=== PATIENT | female | born 1960 | race American Indian/Alaskan Native ===

== ENCOUNTER 2020-02-24 20:55 | Observation (INO) | payer OTHER ==
[2020-02-24] MEDS ORDERED: INSULIN REGULAR, HUMAN 100 UNIT/ML 3ML VIAL IV ONE (22:53)
[2020-02-24] MEDS ORDERED: SODIUM CHLORIDE 0.9% 1000 ML 1,000 ML IV ONE (22:53)
--- NOTE | 2020-02-24 22:58 | Emergency Department Report ---
ED General Adult HPI - General Stated complaint: HIGH BS Time Seen by Provider: 02/24/20 22:43 Source: patient, old records reviewed (No previous medical record for review) Mode of arrival: Stretcher Limitations: Altered Mental Status (mild) - History of Present Illness Initial comments: 59-year-old female with no known past medical history presents to the hospital with 1 week of increased thirst and increased urinary frequency x1 week. Patient does not have any known medical problems but she also does not have a primary care doctor and has not seen a physician in quite some time. Patient also complains of nausea without vomiting, no pain reported, fever, or dysuria. Initial glucose was 364 with EMS and while waiting for a bed assignment in the ED increased to 476. EMS provided 1200 mL of normal saline. Patient is pleasant and follows commands. She does exhibit some mild confusion. She is able to tell me that she is in the hospital but does not know which one, she knows the president is Lazaro Nagy, however, she is unable to tell me the current year, month, states her age is 58, and unable to tell me her year. Patient denies smoking or drinking alcohol - Related Data Allergies Allergy/AdvReac Type Severity Reaction Status Date / Time Penicillins Allergy Swelling Verified 02/25/20 01:36 EDT ED Review of Systems ROS: Stated complaint: HIGH BS Other details as noted in HPI Comment: All other systems reviewed and negative ED Physical Exam - Other Other exam information: General: No acute distress Head: Atraumatic Eyes: normal appearance ENT: dry mucous membranes Neck: Normal appearance, no midline tenderness Chest: Clear to auscultation bilaterally CV: Regular rate and rhythm Abdomen: Soft, normal bowel sounds, nontender, nondistended, no rebound or guarding Back: Normal inspection Extremity: Normal inspection, full range of motion Neuro: Alert O x 2, no facial asymmetry, speech clear, no gross motor sensory deficit Psych: Appropriate behavior Skin: No rash ED Course Vital Signs 02/24/20 23:20 Temperature 98.7 F Pulse Rate 105 H Respiratory 16 Rate Blood Pressure 169/87 [Left] O2 Sat by Pulse 95 Oximetry - Reevaluation(s) Reevaluation #1: 02/25/20 01:16 EDT Glucose is trending downward with insulin and IV fluids. Patient is still exhibiting some confusion. She repeated in the bed instead of the bedpan. She pulled out her IV and all her monitor leads. Patient is now not able to accurately tell me her date and year of . She still was unable to tell me the year or the month. I attempted to call the phone number on the chart for collateral information but the number on the chart is disconnected and I do not have a current contact for her family members. 02/25/20 01:23 EDT Troponin added to labs given mild ekg abnl. patient does not complain of chest pain 02/25/20 01:36 EDT Patient provided number [phone] as her [employer]'s number. This number was called and went straight to voicemail with a female's voice and is unlikely her is true number. ED Medical Decision Making - Lab Data Result diagrams: 02/24/20 23:00 02/24/20 23:00 Lab Results 02/24/20 02/24/20 02/24/20 Range/Units 23:00 23:00 23:00 WBC 9.1 (4.5-11.0) K/mm3 RBC 5.34 H (3.65-5.03) M/mm3 Hgb 16.5 H (10.1-14.3) gm/dl Hct 48.7 H (30.3-42.9) % MCV 91 (79-97) fl MCH 31 (28-32) pg MCHC 34 (30-34) % RDW 12.7 L (13.2-15.2) % Plt Count 542 H (140-440) K/mm3 Lymph % (Auto) 16.4 (13.4-35.0) % [place] % (Auto) 7.8 H (0.0-7.3) % Eos % (Auto) 0.1 (0.0-4.3) % Baso % (Auto) 0.9 (0.0-1.8) % Lymph # (Auto) 1.5 (1.2-5.4) K/mm3 [place] # (Auto) 0.7 (0.0-0.8) K/mm3 Eos # (Auto) 0.0 (0.0-0.4) K/mm3 Baso # (Auto) 0.1 (0.0-0.1) K/mm3 Seg Neutrophils % 74.8 H (40.0-70.0) % Seg Neutrophils # 6.8 (1.8-7.7) K/mm3 VBG pH 7.397 (7.320-7.420) Sodium 137 (137-145) mmol/L Potassium 3.9 (3.6-5.0) mmol/L Chloride 92.4 L (98-107) mmol/L Carbon Dioxide 26 (22-30) mmol/L Anion Gap 23 mmol/L BUN 26 H (7-17) mg/dL Creatinine 0.9 (0.6-1.2) mg/dL Estimated GFR > 60 ml/min BUN/Creatinine Ratio 29 % Glucose 418 H (65-100) mg/dL POC Glucose (70-105) mg/dL Calcium 8.8 (8.4-10.2) mg/dL Magnesium 2.80 H (1.7-2.3) mg/dL Total Bilirubin 0.70 (0.1-1.2) mg/dL AST 21 (5-40) units/L ALT 29 (7-56) units/L Alkaline Phosphatase 94 (35-129) units/L Total Protein 6.9 (6.3-8.2) g/dL Albumin 3.6 L (3.9-5) g/dL Albumin/Globulin Ratio 1.1 % 02/24/20 02/25/20 Range/Units 23:36 01:25 EST WBC (4.5-11.0) K/mm3 RBC (3.65-5.03) M/mm3 Hgb (10.1-14.3) gm/dl Hct (30.3-42.9) % MCV (79-97) fl MCH (28-32) pg MCHC (30-34) % RDW (13.2-15.2) % Plt Count (140-440) K/mm3 Lymph % (Auto) (13.4-35.0) % [place] % (Auto) (0.0-7.3) % Eos % (Auto) (0.0-4.3) % Baso % (Auto) (0.0-1.8) % Lymph # (Auto) (1.2-5.4) K/mm3 [place] # (Auto) (0.0-0.8) K/mm3 Eos # (Auto) (0.0-0.4) K/mm3 Baso # (Auto) (0.0-0.1) K/mm3 Seg Neutrophils % (40.0-70.0) % Seg Neutrophils # (1.8-7.7) K/mm3 VBG pH (7.320-7.420) Sodium (137-145) mmol/L Potassium (3.6-5.0) mmol/L Chloride (98-107) mmol/L Carbon Dioxide (22-30) mmol/L Anion Gap mmol/L BUN (7-17) mg/dL Creatinine (0.6-1.2) mg/dL Estimated GFR ml/min BUN/Creatinine Ratio % Glucose (65-100) mg/dL POC Glucose 351 H 290 H (70-105) mg/dL Calcium (8.4-10.2) mg/dL Magnesium (1.7-2.3) mg/dL Total Bilirubin (0.1-1.2) mg/dL AST (5-40) units/L ALT (7-56) units/L Alkaline Phosphatase (35-129) units/L Total Protein (6.3-8.2) g/dL Albumin (3.9-5) g/dL Albumin/Globulin Ratio % - EKG Data -: EKG Interpreted by In EKG shows normal: sinus rhythm, ST-T waves (Inferior lateral T wave inversion) Rate: normal - EKG Data 02/24/20 22:58 EMS EKG sinus rate 92 with inferior lateral T wave inversions however, artifact - Radiology Data Radiology results: report reviewed CT head without contrast INDICATION : Altered mental status. TECHNIQUE: Axial imaging performed from the skull apex through the skull base without the use of contrast. All CT examinations performed at this facility utilize dose modulation, iterative reconstruction or weight-based dosing, when appropriate, to reduce radiation dose to as low as reasonably achievable. COMPARISON: None FINDINGS: No acute intracranial hemorrhage or parenchymal abnormality. Ventricles are normal in size and appear symmetric. Soft tissues including the orbits appear normal. No acute osseous abnormality. Sinuses and mastoid air cells are clear. IMPRESSION: No acute abnormality. - Medical Decision Making Patient presents to the hospital alteration in mental status/mild confusion and new onset diabetes with hyperglycemia without signs of DKA. No focal deficits noted on examination other than cognitive deficits. CT head without acute abnormalities. Urine collection is pending to out infection however, patient does not have fever or leukocytosis. She initially urinated in the bed instead of the bedpan. hospitalist informed of admission Critical Care Time: No Critical care attestation.: If time is entered above; I have spent that time in minutes in the direct care of this critically ill patient, excluding procedure time. ED Disposition Clinical Impression: Diabetes mellitus, new onset, Hyperglycemia, Confusion, Mental status alteration, Dehydration Disposition: OP ADMIT IP TO THIS HOSP Is pt being admited?: Yes Condition: Stable Time of Disposition: 01:29 (Dr Hernandez/hospitalist) - Assessment Assessment Interval: Baseline - Level of Consciousness 1a. Level of Consciousness: alert/keenly responsive - LOC Questions 1b. LOC Questions: answers 1 question correctly - LOC Command 1c. LOC Commands: performs tasks correctly - Best Gaze 2. Best Gaze: normal - Visual 3. Visual: no visual loss - Facial Palsy 4. Facial Palsy: normal symmetrical movement - Motor Arm 5a. Motor Arm Left: no drift 5b. Motor Arm Right: no drift - Motor Leg 6a. Motor Leg Left: no drift 6b. Motor Leg Right: no drift - Limb Ataxia 7. Limb Ataxia: absent - Sensory 8. Sensory: normal - Best Language 9. Best Language: no aphasia - Dysarthria 10. Dysarthria: normal - Extinction and Inattention 11. Extinction/Inattention: no abnormality (Patient does have a delay when trying to name objects. Example she is able to name a pen but is delayed in naming a glove) - Scoring Total Score: 1 Stroke Severity: Minor Stroke
[2020-02-24 23:14] LABS: Basophils # (Auto) 0.1 K/mm3 (0.0-0.1); Basophils % (Auto) 0.9 % (0.0-1.8); Eosinophils % (Auto) 0.1 % (0.0-4.3); Hematocrit 48.7 % (30.3-42.9); Hemoglobin 16.5 gm/dl (10.1-14.3); Lymphocytes # (Auto) 1.5 K/mm3 (1.2-5.4); Lymphocytes % (Auto) 16.4 % (13.4-35.0); Mean Corpuscular HGB Conc 34 % (30-34); Mean Corpuscular Volume 91 fl (79-97); Monocytes # (Auto) 0.7 K/mm3 (0.0-0.8); Monocytes % (Auto) 7.8 % (0.0-7.3); Platelet Count 542 K/mm3 (140-440); Red Blood Count 5.34 M/mm3 (3.65-5.03); Red Cell Distribution Width 12.7 % (13.2-15.2)
[2020-02-24] MEDS ORDERED: INSULIN REGULAR, HUMAN 100 UNITS/1 ML ONE (23:20)
[2020-02-24 23:28] LABS: Alanine Aminotransferase 29 units/L (7-56); Albumin 3.6 g/dL (3.9-5); BUN/Creatinine Ratio 29; Blood Urea Nitrogen 26 mg/dL (7-17); Calcium 8.8 mg/dL (8.4-10.2); Hemolysis Index 12
--- NOTE | 2020-02-24 23:41 | Cat Scan Report ---
CT head without contrast INDICATION : Altered mental status. TECHNIQUE: Axial imaging performed from the skull apex through the skull base without the use of con trast. All CT examinations performed at this facility utilize dose modulation, iterative reconstruct ion or weight-based dosing, when appropriate, to reduce radiation dose to as low as reasonably achiev able. COMPARISON: None FINDINGS: No acute intracranial hemorrhage or parenchymal abnormality. Ventricles are normal in si ze and appear symmetric. Soft tissues including the orbits appear normal. No acute osseous abnorm ality. Sinuses and mastoid air cells are clear. IMPRESSION: No acute abnormality. Signer Name: Carlos Dela Cruz MD Signed: 02/24/2020 11:36 PM Workstation Name: [id number]
[2020-02-25] MEDS ORDERED: SODIUM CHLORIDE 0.9% 1000 ML 1,000 ML IV ONE (00:04)
--- NOTE | 2020-02-25 01:05 | History and Physical Report ---
<LOISJYOTI O - Last Filed: 02/25/20 05:23> History of Present Illness Date of examination: 02/25/20 Date of admission: 02/25/2020 Chief complaint: Increased Thirst Increased Urination History of present illness: Old female with no significant past medical history presented to the emergency room today with complaints of increased urinary frequency and increased thirst which has been ongoing for about a week. She has also been having some nausea and vomiting but denies any abdominal pain and no diarrhea. Patient denies any chest pain or shortness of breath. Denies any fever or chills, denies any sick contacts and no recent travel, denies any contact with anyone with COVID-19. Upon arrival in the emergency room she appeared mildly confused. Work-up in the emergency room today reveals elevated blood glucose of 476. Patient was started on IV fluid and also given some insulin. Blood glucose later improved to the 290s. She has not been able to give a urine sample for urinalysis. Patient being admitted for new onset diabetes mellitus and changes in mental status. Past History Past Medical History: No medical history Past Surgical History: No surgical history Social history: no significant social history Family history: no significant family history Medications and Allergies Allergies Allergy/AdvReac Type Severity Reaction Status Date / Time Penicillins Allergy Swelling Verified 02/25/20 01:36 EDT Active Meds: Active Medications Acetaminophen (Tylenol) 650 mg PO Q4H PRN PRN Reason: Pain MILD(1-3)/Fever >100.5/VALENTINE Dextrose (D50w (25gm) Syringe) 50 ml IV Q30MIN PRN; Protocol PRN Reason: Hypoglycemia Dextrose (D50w (25gm) Syringe) 50 ml IV Q30MIN PRN; Protocol PRN Reason: Hypoglycemia Sodium Chloride (Nacl 0.9% 1000 Ml) 1,000 mls @ 150 mls/hr IV DIRECT ACOSTA Insulin Human Lispro (Humalog) 0 unit SUB-Q ACHS ACOSTA; Protocol Magnesium Hydroxide (Milk Of Magnesia) 30 ml PO Q4H PRN PRN Reason: Constipation Ondansetron HCl (Zofran) 4 mg IV Q8H PRN PRN Reason: Nausea And Vomiting Sodium Chloride (Sodium Chloride Flush Syringe 10 Ml) 10 ml IV BID ACOSTA Sodium Chloride (Sodium Chloride Flush Syringe 10 Ml) 10 ml IV PRN PRN PRN Reason: LINE FLUSH Review of Systems Constitutional: no fever, no chills Ears, nose, mouth and throat: no nasal congestion, no sore throat Cardiovascular: no chest pain, no palpitations Respiratory: no cough, no shortness of breath Gastrointestinal: no nausea, no vomiting, no diarrhea Genitourinary Female: urinary frequency, no pelvic pain, no flank pain, no dysuria, no hematuria Musculoskeletal: no neck pain, no low back pain Integumentary: no rash, no pruritis Neurological: confusion, no headaches Psychiatric: no anxiety, no depression Endocrine: polydipsia, polyuria Exam - Constitutional Vitals: Temp Pulse Resp BP Pulse Ox 98.7 F 105 H 16 169/87 95 02/24/20 23:20 02/24/20 23:20 02/24/20 23:20 02/24/20 23:20 02/24/20 23:20 General appearance: Present: no acute distress, well-nourished, obese - EENT Eyes: Present: PERRL, EOM intact. Absent: scleral icterus ENT: hearing intact, clear oral mucosa, dentition normal - Neck Neck: Present: supple, normal ROM - Respiratory Respiratory effort: normal Respiratory: bilateral: CTA - Cardiovascular Rhythm: regular Heart Sounds: Present: S1 & S2. Absent: gallop, systolic murmur, diastolic murmur, rub - Extremities Extremities: no ischemia, pulses intact, pulses symmetrical, No edema, Full ROM Peripheral Pulses: within normal limits - Abdominal General gastrointestinal: Present: soft, non-tender, non-distended, normal bowel sounds - Integumentary Integumentary: Present: clear, warm, dry. Absent: rash - Musculoskeletal Musculoskeletal: strength equal bilaterally - Psychiatric Psychiatric: appropriate mood/affect, intact judgment & insight, memory intact, cooperative - Neurologic Neurologic: CNII-XII intact, no focal deficits, moves all extremities HEART Score - HEART Score Troponin: Troponin T < 0.010 ng/mL (0.00-0.029) 02/25/20 Unknown Results - Labs CBC & Chem 7: 02/24/20 23:00 02/24/20 23:00 Labs: Abnormal lab results 02/24/20 02/24/20 02/24/20 Range/Units 23:00 23:00 23:36 RBC 5.34 H (3.65-5.03) M/mm3 Hgb 16.5 H (10.1-14.3) gm/dl Hct 48.7 H (30.3-42.9) % RDW 12.7 L (13.2-15.2) % Plt Count 542 H (140-440) K/mm3 [place] % (Auto) 7.8 H (0.0-7.3) % Seg Neutrophils % 74.8 H (40.0-70.0) % Chloride 92.4 L (98-107) mmol/L BUN 26 H (7-17) mg/dL Glucose 418 H (65-100) mg/dL POC Glucose 351 H (70-105) mg/dL Magnesium 2.80 H (1.7-2.3) mg/dL Albumin 3.6 L (3.9-5) g/dL 02/25/20 Range/Units 01:25 EST RBC (3.65-5.03) M/mm3 Hgb (10.1-14.3) gm/dl Hct (30.3-42.9) % RDW (13.2-15.2) % Plt Count (140-440) K/mm3 [place] % (Auto) (0.0-7.3) % Seg Neutrophils % (40.0-70.0) % Chloride (98-107) mmol/L BUN (7-17) mg/dL Glucose (65-100) mg/dL POC Glucose 290 H (70-105) mg/dL Magnesium (1.7-2.3) mg/dL Albumin (3.9-5) g/dL Assessment and Plan - Patient Problems (1) Mental status alteration Current Visit: Yes Status: Acute Plan to address problem: Etiology is unclear. Will monitor mental status. (2) Diabetes mellitus, new onset Current Visit: Yes Status: Acute Plan to address problem: We will monitor Accu-Cheks and continue IV fluid. We will place a dietary consult for evaluation. We will also check hemoglobin A1c. (3) Dehydration Current Visit: Yes Status: Acute Plan to address problem: Secondary to the nausea and vomiting. We will continue on IV fluid and monitor chemistry. (4) DVT prophylaxis Current Visit: Yes Status: Acute Plan to address problem: Patient placed on subcutaneous Lovenox. (5) Full code status Current Visit: Yes Status: Acute <ROSIE,SAMY S - Last Filed: 02/25/20 14:21> History of Present Illness Date of admission: 02/25/20 01:37 EST Medications and Allergies Active Meds: Active Medications Acetaminophen (Tylenol) 650 mg PO Q4H PRN PRN Reason: Pain MILD(1-3)/Fever >100.5/VALENTINE Dextrose (D50w (25gm) Syringe) 0 ml IV Q30MIN PRN; Protocol PRN Reason: Hypoglycemia Enoxaparin Sodium (Enoxaparin) 40 mg SUB-Q QDAY@2200 ACOSTA; Protocol Sodium Chloride (Nacl 0.9% 1000 Ml) 1,000 mls @ 150 mls/hr IV DIRECT ACOSTA Insulin Human Lispro (Humalog) 0 unit SUB-Q ACHS ACOSTA; Protocol Last Admin: 02/25/20 13:12 Dose: 3 unit Documented by: Magnesium Hydroxide (Milk Of Magnesia) 30 ml PO Q4H PRN PRN Reason: Constipation Ondansetron HCl (Zofran) 4 mg IV Q8H PRN PRN Reason: Nausea And Vomiting Sodium Chloride (Sodium Chloride Flush Syringe 10 Ml) 10 ml IV BID ACOSTA Sodium Chloride (Sodium Chloride Flush Syringe 10 Ml) 10 ml IV PRN PRN PRN Reason: LINE FLUSH Exam - Constitutional Vitals: Temp Pulse Resp BP Pulse Ox 98.4 F 106 H 18 142/87 92 02/25/20 11:52 02/25/20 11:52 02/25/20 11:52 02/25/20 11:52 02/25/20 11:52 HEART Score - HEART Score Troponin: Troponin T < 0.010 ng/mL (0.00-0.029) 02/25/20 Unknown Results - Labs CBC & Chem 7: 02/24/20 23:00 02/24/20 23:00 Labs: Abnormal lab results 02/24/20 02/24/20 02/24/20 Range/Units 23:00 23:00 23:36 RBC 5.34 H (3.65-5.03) M/mm3 Hgb 16.5 H (10.1-14.3) gm/dl Hct 48.7 H (30.3-42.9) % RDW 12.7 L (13.2-15.2) % Plt Count 542 H (140-440) K/mm3 [place] % (Auto) 7.8 H (0.0-7.3) % Seg Neutrophils % 74.8 H (40.0-70.0) % Chloride 92.4 L (98-107) mmol/L BUN 26 H (7-17) mg/dL Glucose 418 H (65-100) mg/dL POC Glucose 351 H (70-105) mg/dL Hemoglobin A1c (4-6) % Magnesium 2.80 H (1.7-2.3) mg/dL Albumin 3.6 L (3.9-5) g/dL 02/25/20 02/25/20 02/25/20 Range/Units 01:25 EST 10:00 13:08 RBC (3.65-5.03) M/mm3 Hgb (10.1-14.3) gm/dl Hct (30.3-42.9) % RDW (13.2-15.2) % Plt Count (140-440) K/mm3 [place] % (Auto) (0.0-7.3) % Seg Neutrophils % (40.0-70.0) % Chloride (98-107) mmol/L BUN (7-17) mg/dL Glucose (65-100) mg/dL POC Glucose 290 H 277 H 236 H (70-105) mg/dL Hemoglobin A1c (4-6) % Magnesium (1.7-2.3) mg/dL Albumin (3.9-5) g/dL 02/25/20 Range/Units Unknown RBC (3.65-5.03) M/mm3 Hgb (10.1-14.3) gm/dl Hct (30.3-42.9) % RDW (13.2-15.2) % Plt Count (140-440) K/mm3 [place] % (Auto) (0.0-7.3) % Seg Neutrophils % (40.0-70.0) % Chloride (98-107) mmol/L BUN (7-17) mg/dL Glucose (65-100) mg/dL POC Glucose (70-105) mg/dL Hemoglobin A1c 10.7 H (4-6) % Magnesium (1.7-2.3) mg/dL Albumin (3.9-5) g/dL
[2020-02-25] MEDS ORDERED: ONDANSETRON 4 MG/2 ML INJ IV PRN (01:53)
[2020-02-25] MEDS ORDERED: MAGNESIUM HYDROXIDE (MOM) ORAL LIQD UDC PO PRN (01:53)
[2020-02-25] MEDS ORDERED: ACETAMINOPHEN 325 MG TAB PO PRN (01:53)
[2020-02-25] MEDS ORDERED: DEXTROSE 50% IN WATER (25GM) 50 ML SYRINGE IV PRN (01:53)
[2020-02-25] MEDS ORDERED: SODIUM CHLORIDE 0.9% 1000 ML 1,000 ML IV SCH (02:00)
[2020-02-25] MEDS ORDERED: hydrALAZINE 20 MG/1 ML INJ IV ONE (05:13)
[2020-02-25] MEDS: INSULIN LISPRO 100 UNIT/ML VIAL 3 mL SUB-Q SCH ×4 (10:25→22:21)
--- NOTE | 2020-02-25 14:27 | Event Note ---
Date: 02/25/20 Patient admitted for new onset diabetes and acute encephalopathy Patient doing better Probable discharge tomorrow
[2020-02-25] MEDS: LINAGLIPTIN 5 MG TAB PO SCH (17:00)
[2020-02-25] MEDS: GLIMEPIRIDE 2 MG TAB PO SCH ×2 (17:01→22:32)
[2020-02-25 18:19] LABS: Bacteria,Urine 1+ /HPF (Negative); Bilirubin,Urine NEG (Negative); Blood,Urine NEG (Negative); Color,Urine Yellow (Yellow); Mucus,Urine FEW /HPF
[2020-02-25] MEDS: ENOXAPARIN 40 MG/0.4 ML INJ SUB-Q SCH (22:29)
[2020-02-26] MEDS ORDERED: hydrALAZINE 20 MG/1 ML INJ IV ONE (05:50)
[2020-02-26 07:22] LABS: INR 1.16 (0.87-1.13)
[2020-02-26 07:35] LABS: Blood Urea Nitrogen 12 mg/dL (7-17); Calcium 8.2 mg/dL (8.4-10.2); Hemolysis Index 3
[2020-02-26 07:36] LABS: BUN/Creatinine Ratio 17
[2020-02-26] MEDS: INSULIN LISPRO 100 UNIT/ML VIAL 3 mL SUB-Q SCH ×4 (08:45→23:14)
[2020-02-26] MEDS: LINAGLIPTIN 5 MG TAB PO SCH (13:29)
[2020-02-26] MEDS: GLIMEPIRIDE 2 MG TAB PO SCH ×3 (13:29→19:02)
--- NOTE | 2020-02-26 15:37 | Discharge Summary ---
Providers - Providers Date of Admission: 02/25/20 01:37 EST Date of discharge: 02/26/20 Attending physician: SAMY VELEZ 02/25/20 01:57 Consult to Dietitian/Nutrition [CONS] Routine Physician Instructions: Reason For Exam: Reason for Consult: Diet education 02/25/20 14:28 Consult to Dietitian/Nutrition [CONS] Routine Physician Instructions: Carbohydrate diet education Reason For Exam: New onset diabetes Reason for Consult: Pt needs oral supplement [facility] Condition: Stable Hospital course: 59-year-old female with no significant past medical history presented to the emergency room today with complaints of increased urinary frequency and increased thirst which has been ongoing for about a week. She has also been having some nausea and vomiting but denies any abdominal pain and no diarrhea. Patient denies any chest pain or shortness of breath. Denies any fever or chills, denies any sick contacts and no recent travel, denies any contact with anyone with COVID-19. Upon arrival in the emergency room she appeared mildly confused. Work-up in the emergency room today reveals elevated blood glucose of 476. Patient was started on IV fluid and also given some insulin. Blood glucose later improved to the 290s. She has not been able to give a urine sample for urinalysis. Patient being admitted for new onset diabetes mellitus and changes in mental status. (1) Acute metabolic encephalopathy Secondary to hyperglycemia of 475 Improved after correction of blood glucose levels (2) Diabetes mellitus, new onset Patient educated about diabetes Patient had coverage while in the hospital Patient to be discharged on oral hypoglycemics Metformin and glimepiride (3) Dehydration Current Visit: Yes Status: Acute Plan to address problem: Corrected (4) hypertension new onset Valsartan 160 q24h Patient educated about diabetes and hypertension Patient to follow-up with primary care physician Lab values also given Disposition: TO HOME OR SELFCARE Time spent for discharge: 30 minutes - Discharge Diagnoses (1) Acute metabolic encephalopathy Status: Acute Comment: Resolved (2) Diabetes mellitus, new onset Status: Acute Comment: Diabetes education done Patient to be discharged on Metformin and glyburide (3) Hypertension Status: Acute Qualifiers: Hypertension type: essential hypertension Qualified Code(s): I10 - Essential (primary) hypertension Comment: New onset hypertension Patient started on valsartan 160 mg once a day Core Measure Documentation - Palliative Care Palliative Care/ Comfort Measures: Not Applicable - Core Measures Any of the following diagnoses?: none Exam - Constitutional Vitals: Temp Pulse Resp BP Pulse Ox 97.9 F 87 18 154/90 96 02/26/20 11:27 02/26/20 11:27 02/26/20 11:27 02/26/20 11:27 02/26/20 11:27 General appearance: Present: no acute distress, well-nourished - EENT Eyes: Present: PERRL ENT: hearing intact, clear oral mucosa - Neck Neck: Present: supple, normal ROM - Respiratory Respiratory effort: normal Respiratory: bilateral: CTA - Cardiovascular Heart rate: 78 Heart Sounds: Present: S1 & S2. Absent: rub, click - Extremities Extremities: no ischemia, pulses intact, pulses symmetrical, No edema Peripheral Pulses: within normal limits - Abdominal General gastrointestinal: Present: soft, non-tender, non-distended, normal bowel sounds Female genitourinary: Present: normal - Rectal Rectal Exam: deferred (And) - Integumentary Integumentary: Present: clear, warm, dry - Musculoskeletal Musculoskeletal: gait normal, strength equal bilaterally - Psychiatric Psychiatric: appropriate mood/affect, intact judgment & insight - Neurologic Neurologic: CNII-XII intact, moves all extremities - Allied Health Allied health notes reviewed: nursing, case management Plan Activity: no restrictions Diet: low salt, diabetic Follow up with: DURGA JOYNER MD [Primary Care Provider] - 3-5 Days
[2020-02-26] MEDS ORDERED: cloNIDine 0.2 MG TAB PO SCH (16:00)
[2020-02-26 20:05] LABS: Hemoglobin 12.7 gm/dl (10.1-14.3); Mean Corpuscular HGB Conc 34 % (30-34); Mean Corpuscular Volume 92 fl (79-97); Platelet Count 383 K/mm3 (140-440); Red Blood Count 4.03 M/mm3 (3.65-5.03); Red Cell Distribution Width 12.7 % (13.2-15.2)
[2020-02-26] MEDS: ENOXAPARIN 40 MG/0.4 ML INJ SUB-Q SCH (23:13)
[2020-02-27] MEDS: INSULIN LISPRO 100 UNIT/ML VIAL 3 mL SUB-Q SCH ×2 (07:35→12:34)
[2020-02-27] MEDS ORDERED: VALSARTAN 160MG TAB PO SCH (12:00)
[2020-02-27] MEDS: LINAGLIPTIN 5 MG TAB PO SCH (12:31)
[2020-02-27] MEDS: GLIMEPIRIDE 2 MG TAB PO SCH (12:31)
[2020-02-27 17:43] VITALS: BP 150/83
== END 2020-02-27 17:25 | disposition home or self-care (01) ==
LOC: ED 20:55 → 3B 02-25 01:37
PROVIDERS: ADMIT Internal Medicine Geriatric Medicine; ATTEND Internal Medicine
DX: G93.41 Metabolic encephalopathy (principal); E11.65 Type 2 diabetes mellitus with hyperglycemia; I10 Essential (primary) hypertension; E86.0 Dehydration; R41.82 Altered mental status, unspecified; Z79.4 Long term (current) use of insulin; Z79.899 Other long term (current) drug therapy
CPT/HCPCS: 36415; 70450; 80048; 80053; 81001; 82805; 82962; 83036; 83735; 84484; 85025; 85610; 93005; 96361; 96372; 96374; 96375; 99285; G0378; J0360; J1650; J7030; J1815

== ENCOUNTER 2020-12-18 11:18 | Emergency (ER) | payer OTHER | END 2020-12-18 14:00 | disposition left against medical advice (07) | LOC: ED 11:18 | DX: R73.9 Hyperglycemia, unspecified (principal); Z53.21 Procedure and treatment not carried out due to patient leaving prior to being seen by health care provider ==

== ENCOUNTER 2020-12-20 12:39 | Emergency (ER) | payer OTHER ==
[2020-12-20] MEDS ORDERED: cloNIDine 0.1 MG TAB ONE (22:21)
[2020-12-20] MEDS ORDERED: cloNIDine 0.1 MG TAB PO ONE (22:24)
--- NOTE | 2020-12-20 23:47 | Emergency Department Report ---
ED General Adult HPI - General Chief complaint: Hyperglycemia Stated complaint: BLOOD SUGAR Time Seen by Provider: 12/20/20 23:32 Source: patient Mode of arrival: Ambulatory Limitations: No Limitations - History of Present Illness Initial comments: Chief complaint: My sugar was high. This is a 60-year-old female with history of asthma presents with elevated blood sugar. Her has history of diabetes mellitus. Her is followed by government affairs specialist at [facility]. Recently she has taken her blood sugar readings using glucometer. The readings have been in the 200s. She was evaluated at a walk-in clinic in sent to the emergency department. She has been asymptomatic. She does not have a history of hypertension or diabetes. She has not seen a primary care physician in several years. He does not take any medication. Upon electronic medical record review, patient was evaluated and admitted to the hospital in 2019. She was diagnosed with new onset diabetes mellitus. Blood glucose in the emergency room 476 during that ED encounter. -: Gradual, days(s) (Several days) Consistency: constant Improves with: none Worsens with: none Associated Symptoms: denies other symptoms - Related Data Previous Rx's Medication Instructions Recorded Last Taken Type Glimepiride [Amaryl] 2 mg PO BIDDIAB #60 tablet 02/26/20 Unknown Rx Linagliptin [Tradjenta] 5 mg PO QDDIAB #30 tablet 02/26/20 Unknown Rx Valsartan [Diovan] 160 mg PO QDAY #30 tablet 02/26/20 Unknown Rx Allergies Allergy/AdvReac Type Severity Reaction Status Date / Time Penicillins Allergy Swelling Verified 12/18/20 16:04 ED Review of Systems ROS: Stated complaint: BLOOD SUGAR Other details as noted in HPI Comment: All other systems reviewed and negative Constitutional: denies: fever, malaise Respiratory: denies: cough, shortness of breath Cardiovascular: denies: chest pain Endocrine: denies: increased hunger, increased thirst, increased urine, unexplained weight gain Gastrointestinal: denies: abdominal pain, nausea, vomiting Genitourinary: denies: urgency Musculoskeletal: denies: back pain ED Past Medical Hx - Past Medical History Previous Medical History?: Yes Hx Diabetes: Yes (diet controlled) Hx Asthma: Yes - Surgical History Past Surgical History?: Yes Additional Surgical History: tonsilectomy - Family History Family history: diabetes, hypertension - Social History Smoking Status: Never Smoker Substance Use Type: None - Medications Home Medications: Home Medications Medication Instructions Recorded Confirmed Last Taken Type Glimepiride [Amaryl] 2 mg PO BIDDIAB #60 tablet 02/26/20 Unknown Rx Linagliptin [Tradjenta] 5 mg PO QDDIAB #30 tablet 02/26/20 Unknown Rx Valsartan [Diovan] 160 mg PO QDAY #30 tablet 02/26/20 Unknown Rx ED Physical Exam - General Limitations: No Limitations General appearance: alert, in no apparent distress - Head Head exam: Present: atraumatic, normocephalic - Eye Eye exam: Present: normal appearance - ENT ENT exam: Present: mucous membranes moist - Neck Neck exam: Present: normal inspection, full ROM - Respiratory Respiratory exam: Present: normal lung sounds bilaterally. Absent: respiratory distress, wheezes, rales, rhonchi - Cardiovascular Cardiovascular Exam: Present: regular rate, normal rhythm, normal heart sounds. Absent: systolic murmur, diastolic murmur, rubs, gallop - GI/Abdominal GI/Abdominal exam: Present: soft, normal bowel sounds. Absent: distended, tenderness, guarding, rebound - Extremities Exam Extremities exam: Present: normal inspection - Back Exam Back exam: Present: normal inspection - Neurological Exam Neurological exam: Present: alert, oriented X3 - Psychiatric Psychiatric exam: Present: normal affect, normal mood - Skin Skin exam: Present: warm, dry, intact, normal color. Absent: rash ED Course Vital Signs 12/20/20 12/20/20 12/20/20 15:22 20:10 22:24 Temperature 99.1 F Pulse Rate 88 84 Respiratory 18 18 Rate Blood Pressure 166/102 Blood Pressure 196/110 212/114 [Right] O2 Sat by Pulse 99 98 Oximetry 12/20/20 22:25 Temperature Pulse Rate Respiratory Rate Blood Pressure 212/114 Blood Pressure [Right] O2 Sat by Pulse Oximetry ED Medical Decision Making - Medical Decision Making 1. Acute hyperglycemia due to diabetes mellitus: Blood sugar Accu-Chek 142 in emergency department. I have referred patient to primary care physician. I provided written diabetic diet 2. Asymptomatic hypertensive urgency: I recommended repeat blood pressure reading in order to diagnose hypertension. Patient was given extensive verbal instructions to follow-up with primary care physician to whom she was referred. Critical care attestation.: If time is entered above; I have spent that time in minutes in the direct care of this critically ill patient, excluding procedure time. ED Disposition Clinical Impression: Hyperglycemia due to type 2 diabetes mellitus, Hypertensive urgency Disposition: 01 HOME / SELF CARE / HOMELESS Is pt being admited?: No Does the pt Need Aspirin: No Condition: Stable Instructions: Diabetes Mellitus Type 2 in Adults (ED), Prediabetes Eating Plan, Diabetes Mellitus and Nutrition, Adult Additional Instructions: Please have your blood pressure rechecked. Referrals: DANIELLE CLINE MD [Staff Physician] - 3-5 Days
[2020-12-20 23:52] VITALS: BP 179/95
== END 2020-12-20 23:58 | disposition home or self-care (01) ==
LOC: ED 12:39
DX: E11.65 Type 2 diabetes mellitus with hyperglycemia (principal); I16.0 Hypertensive urgency; J45.909 Unspecified asthma, uncomplicated; Z98.890 Other specified postprocedural states; Z88.0 Allergy status to penicillin
CPT/HCPCS: 82962; 99283